=== PATIENT | male | born 1970 | race African-American/Black ===

== ENCOUNTER 2016-03-06 22:57 | Emergency (ER) | payer SELFPAY ==
[~2016-03-06] VITALS: Ht 182.9 cm; Wt 75.0 kg
[~2016-03-06 22:57] MED LIST: LORA-474 PO; PERC5TAB12 PO; PHEN100 PO; ZOLP10TA3 PO
[2016-03-06 23:00] VITALS: BP 132/103; PULSE 103; RESP 18; TEMP 97.8; O2SAT 96
[2016-03-06 23:05] VITALS: BP 136/81; PULSE 103; RESP 14; TEMP 98.4; O2SAT 98
[2016-03-06] MEDS ORDERED: DILA100C PO (23:05)
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
[2016-03-06] MEDS ORDERED: BUSP1TAB PO (23:11)
[2016-03-06] MEDS ORDERED: LORA1TAB12 PO (23:11)
[2016-03-06] MEDS ORDERED: BUTA1CAP PO (23:11)
[2016-03-06] MEDS ORDERED: HYDROmorphone HCL PF 1 MG/ML VIAL IV PUSH ONE (23:15)
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
[2016-03-07] MEDS ORDERED: PERC5TAB12 PO (01:01)
[2016-03-07] MEDS ORDERED: CEPH-460 PO (01:01)
[2016-03-07 01:49] VITALS: BP 131/84; PULSE 96; RESP 17; O2SAT 100
== END 2016-03-07 03:08 | disposition home or self-care (01) ==
LOC: NEPE 22:57
DX: S81.831A Puncture wound without foreign body, right lower leg, initial encounter (principal); W34.00XA Accidental discharge from unspecified firearms or gun, initial encounter; Y93.9 Activity, unspecified; Y92.9 Unspecified place or not applicable; I10 Essential (primary) hypertension
CPT/HCPCS: 73552; 73564; 96374; 99284; E0113; J1170